=== PATIENT | female | born 1970 | race Two or more races ===

== ENCOUNTER 2019-12-10 19:41 | Inpatient (IN) | payer OTHER ==
[~2019-12-10] VITALS: Ht 154.9 cm; Wt 75.4 kg
[2019-12-10 20:40] LABS: Hematocrit 33.4 % (36.0-46.0); Platelet Count (auto) 216 10^3/uL (140-450); Red Cell Distribution Width 15.6 % (11.8-14.3); White Blood Cell 6.5 10^3/uL (4.4-10.8)
[2019-12-10] MEDS ORDERED: SODIUM CHLORIDE 0.9% 1,000 ML IV ONE ×2 (20:45→22:00)
[2019-12-10] MEDS ORDERED: MORPHINE SULF INJ 2 MG/ML SYRINGE 1ML IV ONE ×3 (20:45→21:30)
[2019-12-10] MEDS ORDERED: ONDANSETRON HCL 4 MG/2 ML VIAL IV ONE (20:45)
[2019-12-10] MEDS ORDERED: MORPHINE SULF INJ 2 MG/ML SYRINGE 1ML ONE (20:53)
[2019-12-10] MEDS ORDERED: ONDANSETRON HCL 4 MG/2 ML VIAL ONE (20:54)
[2019-12-10 21:21] LABS: Hemoglobin 11.7 g/dL (12.2-16.2); Mean Corpuscular Hgb Conc. 35.2 g/dL (32.0-36.0); Mean Corpuscular Volume 85.4 fL (80.0-100.0); Red Blood Cells 3.91 10^6/uL (4.0-5.20)
[2019-12-10 21:23] LABS: Basophils % (manual) 0 (0.0-2.0); Blast Cells 0; Eosinophils % (manual) 0 (0-7); Metamyelocytes % 0; Myelocytes % 0; Promyelocytes % 0; Reactive Lymphocytes 0
[2019-12-10 21:36] LABS: Potassium 3.6 mmol/L (3.5-5.1)
[2019-12-10 21:37] LABS: BUN/Creatinine Ratio 17.2; Calcium 7.6 mg/dL (8.5-10.1)
[2019-12-10 21:38] LABS: Albumin 3.5 g/dL (3.4-5.0); Bilirubin, Total 0.5 mg/dL (0.2-1.0); Magnesium 1.9 mg/dL (1.6-2.6); Total Protein 6.2 g/dL (6.4-8.2)
[2019-12-10 21:53] LABS: Band Neutrophils % (manual) 11; Lymphocytes % (manual) 6 (10.0-50.0); Monocytes % (manual) 5 (0-12)
[2019-12-10] MEDS ORDERED: HYDROmorphone HCL 2 MG/ML VL IV ONE (22:15)
[2019-12-10] MEDS ORDERED: SOD CHL 0.45% 1,000 ML IV ONE (22:45)
[2019-12-10] MEDS ORDERED: cefTRIAXone 1GM/50ML D5W 50 ML IV ONE (22:45)
[2019-12-10] MEDS ORDERED: CALCIUM GLUC 4.65meq/50ml D5AE 50 ML IV ONE (22:45)
[2019-12-10] MEDS ORDERED: ONDANSETRON HCL 4 MG/2 ML VIAL IV PRN (22:45)
[2019-12-10] MEDS ORDERED: MAGNESIUM SULFATE 1GM/100ML 100 ML IV ONE (22:45)
[2019-12-10 22:53] LABS: Urine Bacteria NONE SEEN /hpf (None Seen); Urine Blood 2+ /uL (Negative); Urine Mucus FEW (None Seen); Urine Specific Gravity 1.021 (1.001-1.035); Urine WBC 2 /hpf (0 - 5)
[2019-12-10 23:07] LABS: Alcohol, Urine < 3.0 mg/dL (0-10); Amphetamine Screen, Urine NEGATIVE (NEGATIVE); Barbiturate Scree,Urine NEGATIVE (NEGATIVE); Benzodiazephine Screen, Urine NEGATIVE (NEGATIVE); Cannabinoid Screen, Urine NEGATIVE (NEGATIVE); Cocaine Screen, Urine NEGATIVE (NEGATIVE); Opiate Scree,Urine NEGATIVE (NEGATIVE); Phencyclidine Screen, Urine NEGATIVE (NEGATIVE)
[2019-12-10] MEDS ORDERED: AZITHROMYCIN 500MG/ 250ML 250 ML IV ONE (23:30)
[2019-12-11] MEDS ORDERED: THIAMINE 100mg/ml INJ (200mg/2ml VIAL) IV ONE (00:15)
[2019-12-11] MEDS ORDERED: hydrALAZINE HCL 20 MG/ML VL IV PRN (00:15)
[2019-12-11] MEDS: MORPHINE SULF INJ 2 MG/ML SYRINGE 1ML IV PRN ×2 (01:24→06:28)
[2019-12-11 02:50] VITALS: BP 139/89
[2019-12-11] MEDS ORDERED: MORPHINE SULF INJ 2 MG/ML SYRINGE 1ML IV ONE (04:30)
[2019-12-11 05:40] VITALS: BP 139/89
[2019-12-11 06:18] LABS: Basophils # (auto) 0.1 10 ^3/uL (0-0.2); Eosinophils # (auto) 0 10 ^3/uL (0-0.8); Monocytes # (auto) 0.4 10 ^3/uL (0-1.3); White Blood Cell 5.7 10^3/uL (4.4-10.8)
[2019-12-11 06:21] LABS: Lymphocytes # (auto) 0.7 10 ^3/uL (0.4-5.4); Lymphocytes % (auto) 11.8 % (10.0-50.0); Monocytes % (auto) 6.9 % (0.0-12.0); Neutrophils # (auto) 4.5 10 ^3/uL (1.6-8.6); Neutrophils % (auto) 79.3 % (37.0-80.0); Nucleated Red Blood Cells % 0.1 %; Platelet Count (auto) 211 10^3/uL (140-450); Red Blood Cells 4.09 10^6/uL (4.0-5.20); Red Cell Distribution Width 15.9 % (11.8-14.3)
[2019-12-11 06:38] LABS: Albumin 2.8 g/dL (3.4-5.0); Bilirubin, Total 0.8 mg/dL (0.2-1.0)
[2019-12-11 06:53] LABS: Hematocrit 36.9 % (36.0-46.0); Mean Corpuscular Volume 86.5 fL (80.0-100.0)
[2019-12-11 06:54] LABS: Mean Corpuscular Hemoglobin 29.5 pg (28.0-32.0); Mean Corpuscular Hgb Conc. 34.2 g/dL (32.0-36.0)
[2019-12-11 06:55] LABS: Hemoglobin 12.6 g/dL (12.2-16.2)
[2019-12-11 08:11] LABS: BUN/Creatinine Ratio 6.6
[2019-12-11 08:12] LABS: Total Protein 4.9 g/dL (6.4-8.2)
[2019-12-11 09:16] VITALS: BP 137/80
[2019-12-11] MEDS ORDERED: levoFLOXacin 500MG 100 ML IV SCH (10:00)
[2019-12-11] MEDS: SODIUM CHLORIDE 0.9% 1,000 ML IV SCH ×4 (10:23→22:12)
[2019-12-11] MEDS: HYDROmorphone HCL 2 MG/ML VL IV PRN ×3 (10:28→20:19)
[2019-12-11 13:00] VITALS: BP 117/81
[2019-12-11 16:34] VITALS: BP 118/65
[2019-12-11 22:00] VITALS: BP 109/65
[2019-12-12] MEDS: HYDROmorphone HCL 2 MG/ML VL IV PRN ×6 (00:28→21:49)
[2019-12-12] MEDS: diphenhdrAMINE HCL 50 MG/1 ML VL IV PRN ×2 (02:04→21:18)
[2019-12-12] MEDS ORDERED: methylPREDNISolone SOD SUCC 125 MG/2 ML VL IV ONE (02:30)
[2019-12-12] MEDS: SODIUM CHLORIDE 0.9% 1,000 ML IV SCH ×5 (04:13→21:48)
[2019-12-12 05:00] VITALS: BP 108/78
[2019-12-12 06:22] LABS: Basophils # (auto) 0 10 ^3/uL (0-0.2); Basophils % (auto) 0.4 % (0.0-2.0); Eosinophils # (auto) 0 10 ^3/uL (0-0.8); Eosinophils % (auto) 0.1 % (0.0-7.0); Hematocrit 33.2 % (36.0-46.0); Hemoglobin 11.5 g/dL (12.2-16.2); Lymphocytes # (auto) 1.4 10 ^3/uL (0.4-5.4); Lymphocytes % (auto) 22.8 % (10.0-50.0); Mean Corpuscular Hemoglobin 29.7 pg (28.0-32.0); Mean Corpuscular Hgb Conc. 34.5 g/dL (32.0-36.0); Mean Corpuscular Volume 86.3 fL (80.0-100.0); Monocytes # (auto) 0.2 10 ^3/uL (0-1.3); Monocytes % (auto) 3.9 % (0.0-12.0); Neutrophils # (auto) 4.4 10 ^3/uL (1.6-8.6); Neutrophils % (auto) 72.8 % (37.0-80.0); Nucleated Red Blood Cells % 0.1 %; Platelet Count (auto) 173 10^3/uL (140-450); Red Blood Cells 3.85 10^6/uL (4.0-5.20); Red Cell Distribution Width 16.4 % (11.8-14.3)
[2019-12-12 06:26] LABS: Albumin 2.3 g/dL (3.4-5.0)
[2019-12-12 06:33] LABS: Bilirubin, Total 0.3 mg/dL (0.2-1.0); Total Protein 5.8 g/dL (6.4-8.2)
[2019-12-12 06:36] LABS: Calcium 5.8 mg/dL (8.5-10.1); Potassium 2.8 mmol/L (3.5-5.1)
[2019-12-12] MEDS ORDERED: CALCIUM GLUC 4.65meq/50ml D5AE 50 ML IV ONE (07:00)
[2019-12-12] MEDS: POTASSIUM CHL 20MEQ/100ML 100 ML IV SCH ×3 (07:46→12:40)
[2019-12-12 09:00] VITALS: BP 115/67
[2019-12-12] MEDS: MAGNESIUM SULFATE 1GM/100ML 100 ML IV SCH ×2 (09:00→10:59)
[2019-12-12 12:37] LABS: Magnesium 3.3 mg/dL (1.6-2.6)
[2019-12-12] MEDS: GEMFIBROZIL 600 MG TAB PO SCH (12:40)
[2019-12-12 13:00] VITALS: BP 118/66
[2019-12-12 13:16] LABS: Potassium 2.8 mmol/L (3.5-5.1)
[2019-12-12 16:54] VITALS: BP 105/63
[2019-12-12 22:00] VITALS: BP 136/80
[2019-12-13] MEDS: HYDROmorphone HCL 2 MG/ML VL IV PRN ×6 (02:33→22:46)
[2019-12-13] MEDS: diphenhdrAMINE HCL 50 MG/1 ML VL IV PRN ×2 (03:18→23:15)
[2019-12-13 05:00] VITALS: BP 118/72
[2019-12-13 09:10] VITALS: BP 115/68
[2019-12-13] MEDS: GEMFIBROZIL 600 MG TAB PO SCH (09:57)
[2019-12-13] MEDS: SODIUM CHLORIDE 0.9% 1,000 ML IV SCH ×2 (09:57→10:15)
[2019-12-13] MEDS ORDERED: SODIUM CHLORIDE 0.9% 1,000 ML IV SCH (11:15)
[2019-12-13] MEDS ORDERED: FUROSEMIDE 40 MG/4 ML VIAL IV ONE (11:45)
[2019-12-13 12:14] LABS: BUN/Creatinine Ratio 6.8; Calcium 7.2 mg/dL (8.5-10.1); Potassium 3.1 mmol/L (3.5-5.1)
[2019-12-13 12:58] VITALS: BP 125/66
[2019-12-13] MEDS ORDERED: SODIUM CHLORIDE 0.9 % NEB SOLN 3ML NEB ONE (13:40)
[2019-12-13] MEDS: ALBUTEROL SULF 2.5 MG/0.5ML(0.5%) NEB SOLN NEB SCH ×3 (13:48→23:50)
[2019-12-13 15:15] VITALS: BP 125/66
[2019-12-13] MEDS: cefTRIAXone 1GM/50ML D5W 50 ML IV SCH (16:29)
[2019-12-13] MEDS: AZITHROMYCIN 500MG/ 250ML 250 ML IV SCH (17:29)
[2019-12-13 22:02] VITALS: BP 113/58
[2019-12-14] MEDS: HYDROmorphone HCL 2 MG/ML VL IV PRN ×3 (04:15→12:59)
[2019-12-14 05:00] VITALS: BP 112/67
[2019-12-14] MEDS: ALBUTEROL SULF 2.5 MG/0.5ML(0.5%) NEB SOLN NEB SCH ×2 (06:06→11:28)
[2019-12-14 06:48] LABS: Basophils # (auto) 0 10 ^3/uL (0-0.2); Basophils % (auto) 0.3 % (0.0-2.0); Eosinophils # (auto) 0 10 ^3/uL (0-0.8); Eosinophils % (auto) 0.7 % (0.0-7.0); Hematocrit 28.9 % (36.0-46.0); Hemoglobin 9.6 g/dL (12.2-16.2); Lymphocytes # (auto) 0.9 10 ^3/uL (0.4-5.4); Lymphocytes % (auto) 13.6 % (10.0-50.0); Mean Corpuscular Hgb Conc. 33.2 g/dL (32.0-36.0); Mean Corpuscular Volume 87.3 fL (80.0-100.0); Monocytes # (auto) 0.4 10 ^3/uL (0-1.3); Neutrophils # (auto) 4.9 10 ^3/uL (1.6-8.6); Neutrophils % (auto) 78.4 % (37.0-80.0); Platelet Count (auto) 188 10^3/uL (140-450); Red Blood Cells 3.32 10^6/uL (4.0-5.20); Red Cell Distribution Width 16.3 % (11.8-14.3); White Blood Cell 6.3 10^3/uL (4.4-10.8)
[2019-12-14 07:15] LABS: Potassium 3.1 mmol/L (3.5-5.1)
[2019-12-14 07:21] LABS: BUN/Creatinine Ratio 8.3
[2019-12-14 07:22] LABS: Albumin 2.5 g/dL (3.4-5.0); Bilirubin, Total 0.5 mg/dL (0.2-1.0); Calcium 7.7 mg/dL (8.5-10.1); Total Protein 6.3 g/dL (6.4-8.2)
[2019-12-14] MEDS: cefTRIAXone 1GM/50ML D5W 50 ML IV SCH (08:52)
[2019-12-14 09:00] VITALS: BP 116/65
[2019-12-14] MEDS ORDERED: ENOXAPARIN SOD 40 MG/0.4 ML SYRINGE SC SCH (10:00)
[2019-12-14] MEDS: GEMFIBROZIL 600 MG TAB PO SCH (10:05)
[2019-12-14] MEDS: AZITHROMYCIN 500MG/ 250ML 250 ML IV SCH (10:05)
[2019-12-14 13:00] VITALS: BP 112/70
[2019-12-14 13:31] VITALS: BP 125/66
== END 2019-12-14 14:30 | disposition home or self-care (01) | DRG 282 ==
LOC: EDBD 19:41 → ER 19:41 → OVERFLOW 19:42 → CENTRAL 12-11 02:55
PROVIDERS: ADMIT Internal Medicine; ATTEND Internal Medicine
DX: K85.90 Acute pancreatitis without necrosis or infection, unspecified (principal); J15.9 Unspecified bacterial pneumonia; E78.1 Pure hyperglyceridemia; E78.5 Hyperlipidemia, unspecified; E87.6 Hypokalemia; Z82.3 Family history of stroke; Z82.49 Family history of ischemic heart disease and other diseases of the circulatory system; Z83.3 Family history of diabetes mellitus; Z87.19 Personal history of other diseases of the digestive system
CPT/HCPCS: 36415; 71045; 74176; 80048; 80053; 80061; 80307; 80320; 81001; 83690; 83735; 84132; 85007; 85025; 85027; 85379; 85610; 94640; 96365; 96367; 96368; 96375; 96376; G0378; J0610; J0696; J1956; J2405; J3480